=== PATIENT | male | born 1960 | race Caucasian/White ===

== ENCOUNTER 2017-12-22 07:43 | Day surgery (SDC) | payer BC, OTHER ==
[2017-12-20 14:27] VITALS: BMI 22.8
[~2017-12-22 07:43] MED LIST: LACTATED RINGERS 1,000 ML IV SCH
[2017-12-22 08:42] VITALS: TEMP 97.2
[2017-12-22] MEDS ORDERED: LIDOCAINE 1% 20 ML VIAL (10MG/ML) FOR IV START INTRADERMA ONE (08:42)
[2017-12-22] MEDS ORDERED: PROPOFOL 10 MG/ML 20 ML VIAL IV ONE (09:13)
[2017-12-22] MEDS ORDERED: fentaNYL (PF) 50 MCG/ML 2 ML AMP ONE (09:13)
[2017-12-22] MEDS ORDERED: MIDAZOLAM 2 MG/2 ML VIAL ONE (09:13)
--- NOTE | 2017-12-22 09:16 | P.GSHP ---
History of Present Illness H&P Date: 12/22/17 Chief Complaint: History of colon polyps This a 57-year-old male who presents today for colonoscopy. He has history of colon polyps. His last colonoscopy was approximately 3 years ago. Past Medical History Past Medical History: Hypertension History of Any Multi-Drug Resistant Organisms: None Reported Past Surgical History: Hernia Repair, Orthopedic Surgery Additional Past Surgical History / Comment(s): LEFT KNEE SX. COLONOSCOPY. LT SHOULDER SX Past Anesthesia/Blood Transfusion Reactions: No Reported Reaction Smoking Status: Current every day smoker - Past Family History Father Family Medical History: Cancer Medications and Allergies Home Medications Medication Instructions Recorded Confirmed Type HYDROcodone/APAP 5-325MG [[place] 1 each PO DAILY PRN 12/20/17 12/22/17 History 5-325] Metoprolol Succinate [Toprol XL] 25 mg PO DAILY 12/20/17 12/22/17 History Allergies Allergy/AdvReac Type Severity Reaction Status Date / Time ibuprofen [From Motrin] Allergy Dyspnea Verified 12/20/17 14:21 Surgical - Exam Vital Signs Temp Pulse Resp BP Pulse Ox 97.2 F L 62 16 136/73 99 12/22/17 08:33 12/22/17 08:33 12/22/17 08:33 12/22/17 08:33 12/22/17 08:33 - General well developed, no distress - Eyes PERRL - ENT normal pinna - Neck no masses - Respiratory normal expansion - Cardiovascular Rhythm: regular - Abdomen Abdomen: soft, non tender Assessment and Plan Assessment: History of Polyps. We'll perform colonoscopy.
--- NOTE | 2017-12-22 09:31 | P.OP ---
Date of Procedure: 12/22/17 Preoperative Diagnosis: Colon polyps Postoperative Diagnosis: Right colon polyp, transverse colon polyp, rectal polyp Procedure(s) Performed: Colonoscopy Anesthesia: MAC Surgeon: Rajat Cheema Pathology: other (Right colon polyp, transverse colon polyp, rectal polyp) Condition: stable Disposition: PACU Description of Procedure: The patient was placed on the endoscopy table lateral position. He received IV sedation. Digital rectal exam was performed which revealed no masses. The flexible colonoscopic was placed patient anus and passed throughout the entire colon. Ileocecal valve visualized. In the cecum in the right colon there was a polyp seen this removed with the cold forcep. The scope was then brought back and in the trans-colon another polyp was removed with the cold forcep. The scope was then brought back into the descending and sigmoid colon and this appeared normal. Scope was brought back the rectum and another polyp seen this removed with a cold forcep. Scope withdrawn for patient.
[2017-12-22 10:20] VITALS: BP 153/89; PULSE 75; RESP 18
== END 2017-12-22 10:21 | disposition home or self-care (01) ==
LOC: ORWHC2ENDO 07:43
PROVIDERS: ATTEND Surgery
DX: Z12.11 Encounter for screening for malignant neoplasm of colon (principal); D12.3 Benign neoplasm of transverse colon; K63.5 Polyp of colon; K62.1 Rectal polyp; Z86.010 Personal history of colon polyps; I10 Essential (primary) hypertension; M19.011 Primary osteoarthritis, right shoulder; J44.9 Chronic obstructive pulmonary disease, unspecified; J32.9 Chronic sinusitis, unspecified; K29.70 Gastritis, unspecified, without bleeding; M51.36 Other intervertebral disc degeneration, lumbar region; M17.10 Unilateral primary osteoarthritis, unspecified knee; D75.1 Secondary polycythemia; R00.0 Tachycardia, unspecified; F17.210 Nicotine dependence, cigarettes, uncomplicated; Z79.891 Long term (current) use of opiate analgesic; Z79.899 Other long term (current) drug therapy; Z88.6 Allergy status to analgesic agent
CPT/HCPCS: 88305; 45380; J2250; J3010; J2704

== ENCOUNTER → 2018-09-05 | Outpatient (CLI) | payer OTHER ==
--- NOTE | 2018-09-05 09:13 | CTL ---
EXAMINATION TYPE: CT Low Dose Lung DATE OF EXAM ORDERED: 09/05/2018 HISTORY: . Lung cancer screening CT DLP: 59.[address] CTDI: 1.56 mGy Automated exposure control for dose reduction was used. SCREENING VISIT: Initial COMPARISON: None TECHNIQUE: Low dose computed tomography scan was performed through the chest at 1 mm thick sections a nd reconstructed images in the coronal plane at [address] DIAGNOSTIC QUALITY: Satisfactory FINDINGS: LUNG NODULES: Present, detailed below: 1. There is a 0.3 cm nodule in the periphery of the lateral left upper lobe. Series 205 image 81. 2. There is a peripheral 0.4 cm nodule within the anterolateral right upper lobe. Series 205, image 86. Small area of pneumonitis slightly inferior to this nodule, image 90. 3. There is a 0.3 cm peripheral based nodule in the anterior right middle lobe. Series 205, image 135 . Some apical scarring appears to be present. LUNGS: COPD: Severity: None Fibrosis: Severity: None Lymph nodes: None Other findings: None RIGHT PLEURAL SPACE: Effusion: None Calcification: None Thickening: None Pneumothorax: None LEFT PLEURAL SPACE: Effusion: None Calcification: None Thickening: None Pneumothorax: None HEART: Heart Size: Normal Coronary calcification: None Pericardial effusion: None OTHER FINDINGS: Upper abdomen: Normal Bony thorax: Normal Supraclavicular region: Normal Other: Ascending thoracic aorta at the level of main pulmonary artery is 3.6 cm. The main pulmonary a rtery the bifurcation is 2.6 cm. IMPRESSION: Probably benign findings FOLLOW UP CT CHEST RECOMMENDATION: Follow-up standard CT chest [address] LUNG RAD: Lung-Rad 3 Probably Benign
== END | disposition home or self-care (01) ==
LOC: RADCTMAIN 07:48
PROVIDERS: ATTEND Family Medicine
DX: Z12.2 Encounter for screening for malignant neoplasm of respiratory organs (principal); Z87.891 Personal history of nicotine dependence

== ENCOUNTER → 2019-04-20 | Outpatient (CLI) | payer OTHER ==
--- NOTE | 2019-04-21 22:36 | CT ---
EXAMINATION TYPE: CT chest w con DATE OF EXAM: 04/20/2019 COMPARISON: 09/05/2018 HISTORY: 59-year-old male COPD TECHNIQUE: Contiguous axial scanning of the chest after the administration of 100 ml mL of Isovue 300 . Coronal/sagittal reconstructions performed. CT DLP: 404mGycm. Automatic exposure control utilized for a dose reduction. FINDINGS: Heart normal size without pericardial effusion. Conventional arch vessel branching anatomy with mild arch calcification. Ectatic upper descending tho racic aorta at 3.3 cm. Prominent mediastinal lymph nodes measuring 9 mm right tracheobronchial angle and 8 mm pretracheal ar e unchanged. Prominent but nonenlarged axillary lymph nodes measure up to 9 mm, also unchanged. Trace bilateral gynecomastia. Mild biapical pleural parenchymal scarring with mild centrilobular emphysema and mild diffuse bronchi al wall thickening. 4 mm subpleural pulmonary nodule right upper lobe and anterolateral right midlung, axial image 18 and 28, respectively, are unchanged from 09/05/2018. Previously seen left upper lobe pulmonary nodule is no longer identified. No consolidation or pleural effusion. 1.9 cm left adrenal nodule is unchanged from 09/05/2018, statistically representing a benign adrenal a denoma. Prominent gastrocolic ligament lymph node at 8 mm is unchanged. Diverticulum of the second portion of the duodenum projecting to the pancreatic head region. No osseous destructive process. IMPRESSION: 1. A couple 4 mm right-sided pulmonary nodules are unchanged for approximately 8 months suggesting a benign etiology. 2. COPD with mild emphysema. 3. Scattered borderline sized lymph nodes in the mediastinum, axilla, and also in the gastrohepatic l igament region (8 mm) of the upper abdomen. The gastrohepatic ligament lymph node is larger from 05/07. Consider precautionary follow-up CT of the abdomen in 6 months. Also, continue annual low-dos e lung cancer screening CT. 4. Stable 1.9 cm left adrenal adenoma.
== END | disposition home or self-care (01) ==
LOC: RADCTMAIN 08:39
PROVIDERS: ATTEND Family Medicine
DX: J43.9 Emphysema, unspecified (principal); D35.02 Benign neoplasm of left adrenal gland
CPT/HCPCS: 71260; Q9967

== ENCOUNTER → 2019-05-29 | Outpatient (CLI) | payer OTHER ==
--- NOTE | 2019-05-29 16:04 | XR ---
EXAMINATION TYPE: XR Hip Complete LT DATE OF EXAM: 05/29/2019 COMPARISON: None HISTORY: R 53 pain TECHNIQUE: 2 view left hip FINDINGS: Femoral head articulates with the acetabulum. No acute fractures are evident. Mild diffuse joint space narrowing is noted. IMPRESSION: 1. No acute osseous abnormality left hip
== END | disposition home or self-care (01) ==
LOC: RADXRMAIN 07:43
PROVIDERS: ATTEND Family Medicine
DX: R52 Pain, unspecified (principal)
CPT/HCPCS: 73502

== ENCOUNTER → 2019-10-02 | Outpatient (CLI) | payer OTHER ==
[~2019-10-02] MED LIST changes: -LACTATED RINGERS 1,000 ML IV SCH; +REGADENOSON 0.4 MG/5 ML SYRINGE IV ONE
--- NOTE | 2019-10-02 11:47 | NM ---
EXAMINATION TYPE: NM stress lexiscan cardiolite DATE OF EXAM: 10/02/2019 COMPARISON: NONE HISTORY: Precordial chest pain and abnormal EKG TECHNIQUE: After the intravenous administration of 9.72 mCi Tc 99m Sestamibi - Cardiolite resting SP ECT images acquired 45 minutes post injection. The patient received 0.4mg Lexiscan, 26.1 mCi Tc 99m Sestamibi - Stress images obtained [address] injection FINDINGS: Review of stress and rest SPECT images demonstrates fixed decreased perfusion involving the inferior wall and cardiac apex which may reflect attenuation artifact versus remote insult. Gated analysis dank ws normal wall motion with an estimated left ventricular ejection fraction of 40 %. IMPRESSION: No scintigraphic evidence for reversible ischemia.
--- NOTE | 2019-10-03 10:54 | ECHOF ---
Referral Reason:I49.9 Arrythymia, MEASUREMENTS -------- HEIGHT: 172.7 cm WEIGHT: 68.0 kg BP: RVIDd: 2.9 cm (< 3.3) IVSd: 1.1 cm (0.6 - 1.1) LVIDd: 5.0 cm (3.9 - 5.3) LVPWd: 1.1 cm (0.6 - 1.1) IVSs: 1.4 cm LVIDs: 3.9 cm LVPWs: 1.5 cm LA Diam: 3.2 cm (2.7 - 3.8) LAESV Index (A-L): 23.45 ml/m Ao Diam: 3.7 cm (2.0 - 3.7) AV Cusp: 2.1 cm (1.5 - 2.6) MV EXCURSION: 20.954 mm (> 18.000) MV EF SLOPE: 85 mm/s (70 - 150) EPSS: 1.1 cm MV E Romero: 0.75 m/s MV DecT: 241 ms MV A Romero: 0.94 m/s MV E/A Ratio: 0.80 FINDINGS -------- Sinus rhythm. This was a technically good study. The left ventricular size is normal. There is borderline concentric left ventricular hypertrophy. Overall left ventricular systolic function is normal with, an EF between 60 - 65 %. The right ventricle is normal in size. Normal LA size by volume 22+/-6 ml/m2. The right atrium is normal in size. Interatrial and interventricular septum intact. The aortic valve is trileaflet and appears structurally normal. There is trace mitral regurgitation. The tricuspid valve appears structurally normal. There is no pulmonic regurgitation present. The aortic root size is normal. Normal inferior vena cava with normal inspiratory collapse consistent with estimated right atrial pre ssure of 5 mmHg. There is no pericardial effusion. CONCLUSIONS -------- 1. Sinus rhythm. 2. This was a technically good study. 3. The left ventricular size is normal. 4. There is borderline concentric left ventricular hypertrophy. 5. Overall left ventricular systolic function is normal with, an EF between 60 - 65 %. 6. The right ventricle is normal in size. 7. Normal LA size by volume 22+/-6 ml/m2. 8. The right atrium is normal in size. 9. Interatrial and interventricular septum intact. 10. The aortic valve is trileaflet and appears structurally normal. 11. There is trace mitral regurgitation. 12. The tricuspid valve appears structurally normal. 13. There is no pulmonic regurgitation present. 14. The aortic root size is normal. 15. Normal inferior vena cava with normal inspiratory collapse consistent with estimated right atrial pressure of 5 mmHg. 16. There is no pericardial effusion. PHYSICAL SCIENCES INSTRUCTOR: Sosa Pantoja RDCS
--- NOTE | 2019-10-03 17:42 | EST ---
EXERCISE STRESS AGE: 59 SEX: Male HT: 5'8" WT: 150 PROTOCOL: Lexiscan Cardiolite STAGE: DURATION OF EXERCISE: HEART RATE REST: 58 BLOOD PRESSURE REST: 145/79 MAXIMUM HEART RATE ACHIEVED: 103 MAXIMUM BLOOD PRESSURE: 156/80 85% MPHR: 136 100% MPHR: 160 METS: INDICATIONS: Arrhythmia. CLINICAL INFORMATION: Baseline heart rate 58 beats per minute. Baseline blood pressure 145/79 mmHg. Baseline 12-lead ECG shows normal sinus rhythm with a mildly prolonged IA interval at baseline, nonspecific ST abnormalities with a 0.[address] depression in the inferolateral leads. Patient received Lexiscan infusion per protocol. No significant change in heart rate or blood pressure. ECG abnormalities persisted. No arrhythmias noted. Nuclear portion will be reported separately. MMODL / IJN: [id number] /
== END | disposition home or self-care (01) ==
LOC: RADNMMAIN 08:50
PROVIDERS: ATTEND Family Medicine
DX: I49.9 Cardiac arrhythmia, unspecified (principal)
CPT/HCPCS: 93017; 93306; 78452; A9500; J2785